=== PATIENT | female | born 1945 ===

== ENCOUNTER 2017-07-29 12:27 | Inpatient (IN) | payer OTHER ==
[~2017-07-29] VITALS: Ht 177.8 cm; Wt 103.4 kg
[2017-07-29] MEDS ORDERED: ADVIL100 MG PO (14:52)
[2017-07-29] MEDS ORDERED: TYLENOL325 MG PO (14:53)
[2017-08-06] MEDS ORDERED: CEFADROXIL500 MG PO ×2 (17:30)
[2017-08-06] MEDS ORDERED: PERCOCET 5-3251 EACH PO ×2 (17:30)
[2017-08-06] MEDS ORDERED: XARELTO10 MG PO ×2 (17:30)
[2017-08-06] MEDS ORDERED: ACETAMINOPHEN-1 EAC2 PO ×2 (18:10)
[2017-08-08] MEDS ORDERED: LEVAQUIN750 MG PO (02:42)
== END 2017-08-06 18:05 | DRG 470 ==
LOC: SURH 08-04 05:50 → O/R 08-04 05:50 → SURG 08-04 09:45 → SURH 08-04 11:11 → SURG 08-04 12:27 → SURH 08-06 18:05
PROVIDERS: Orthopaedic Surgery
PROC: 0MNN0ZZ Release Right Knee Bursa and Ligament, Open Approach (ICD-10-PCS; 2017-08-04)
PROC: 0SRC0J9 Replacement of Right Knee Joint with Synthetic Substitute, Cemented, Open Approach (ICD-10-PCS; principal; 2017-08-04 09:45)
DX: M17.11 Unilateral primary osteoarthritis, right knee (principal); D62 Acute posthemorrhagic anemia; M81.0 Age-related osteoporosis without current pathological fracture

== ENCOUNTER → 2017-08-07 | Emergency (ER) | payer OTHER ==
[~2017-08-07] VITALS: Ht 177.8 cm; Wt 103.4 kg
[~2017-08-07] MED LIST: ACETAMINOPHEN-1 EAC2 PO; ADVIL100 MG PO; CEFADROXIL500 MG PO; LEVAQUIN750 MG PO; PERCOCET 5-3251 EACH PO; TYLENOL325 MG PO; XARELTO10 MG PO
== END | disposition home or self-care (01) ==
LOC: ER 21:35
DX: R50.9 Fever, unspecified (principal); J11.1 Influenza due to unidentified influenza virus with other respiratory manifestations